=== PATIENT | male | born 1970 | race Caucasian/White ===

== ENCOUNTER 2016-12-03 16:28 | Emergency (ER) | payer OTHER ==
--- NOTE | 2016-12-03 18:00 | EDM.PDOC ---
ED HPI GENERAL MEDICAL PROBLEM - General Chief Complaint: Skin Complaint Stated Complaint: LACERATION/SMASHED LT INDEX FINGER Time Seen by Provider: 12/03/16 17:40 Source of Information: Reports: Patient History Limitations: Reports: No Limitations - History of Present Illness INITIAL COMMENTS - FREE TEXT/NARRATIVE: HISTORY AND PHYSICAL: History of present illness: [Patient comes to the emergency room for evaluation of a laceration to his left index finger which occurred Saturday evening at 5:00 pm, approximately 72 hours ago. Smashed the tip of his finger in some paneling. Experienced pain and bleeding at the time of injury. Tried to have the wound evaluated at a couple of clinics in the area was able to receive medical evaluation. He is kept the wound clean and dry and wrapped through the weekend and presents the ER now for evaluation. Most recent tetanus shot was given within the last 5 years.] Review of systems: As per history of present illness and below otherwise all systems reviewed and negative. Past medical history: As per history of present illness and as reviewed below otherwise noncontributory. Surgical history: As per history of present illness and as reviewed below otherwise noncontributory. Social history: No reported history of drug or alcohol abuse. Family history: As per history of present illness and as reviewed below otherwise noncontributory. Physical exam: HEENT: Atraumatic, normocephalic. Extremities: Tip of Left index finger shows a flap-type avulsion through the lateral aspect to his mid finger, involving the nail. Neurovascular status is intact to remaining attached tissue. Neuro: Awake, alert, oriented. Motor and sensory unremarkable throughout. Exam nonfocal. Impression: [Smash injury left index finger] Plan: [Dr. Lashawn Martin is contacted in consultation for patient's injury. Wound is cleansed with Xeroform dressing applied. He is started on Keflex 500 mg 3 times a day for the next [address] Martin states that she will contact patient tomorrow to schedule follow-up. The patient is in agreement with today's plan. All of his questions are answered and concerns are addressed.] Definitive disposition and diagnosis as appropriate pending reevaluation and review of above. - Related Data Allergies Allergy/AdvReac Type Severity Reaction Status Date / Time No Known Allergies Allergy Verified 12/03/16 16:38 Home Meds: Home Meds Cephalexin [Keflex] 500 mg PO TID #21 cap 12/03/16 [Rx] Excedrin 12/03/16 [History] Past Medical History - Past Surgical History Musculoskeletal Surgical History: Reports: Other (See Below) Social & Family History - Tobacco Use Smoking Status *Q: Current Every Day Smoker Years of Tobacco use: 25 Packs/Tins Daily: 0.5 - Caffeine Use Caffeine Use: Reports: Soda - Recreational Drug Use Recreational Drug Use: No ED ROS GENERAL - Review of Systems Review Of Systems: ROS reveals no pertinent complaints other than HPI. ED EXAM, SKIN/RASH Exam: See Below Course - Vital Signs Last Recorded V/S: Last Vital Signs Temp 97.5 F 12/03/16 16:39 Pulse 57 L 12/03/16 18:35 Resp 16 12/03/16 18:35 BP 121/71 12/03/16 18:35 Pulse Ox 98 12/03/16 18:35 Departure - Departure Time of Disposition: 18:00 Disposition: Home, Self-Care 01 Condition: Good Clinical Impression: Avulsion of finger tip Qualifiers: Encounter type: initial encounter Qualified Code(s): S61.209A - Unspecified open wound of unspecified finger without damage to nail, initial encounter - Discharge Information Prescriptions: Cephalexin [Keflex] 500 mg PO TID #21 cap Instructions: Nail Bed Injury, [id number] Referrals: PCP,None [Primary Care Provider] - Forms: ED Department Discharge Additional Instructions: The following information is given to patients seen in the emergency department who are being discharged to home. This information is to outline your options for follow-up care. We provide all patients seen in our emergency department with a follow-up referral. The need for follow-up, as well as the timing and circumstances, are variable depending upon the specifics of your emergency department visit. If you don't have a primary care physician on staff, we will provide you with a referral. We always advise you to contact your personal physician following an emergency department visit to inform them of the circumstance of the visit and for follow-up with them and/or the need for any referrals to a consulting specialist. The emergency department will also refer you to a specialist when appropriate. This referral assures that you have the opportunity for follow-up care with a specialist. All of these measure are taken in an effort to provide you with optimal care, which includes your follow-up. Under all circumstances we always encourage you to contact your private physician who remains a resource for coordinating your care. When calling for follow-up care, please make the office aware that this follow-up is from your recent emergency room visit. If for any reason you are refused follow-up, please contact the [facility] emergency department at and asked to speak to the emergency department charge nurse. [facility] Specialty care- Plastic Surgery Professional Building [address] [place] [address], [address] [place] [address] The above listed clinic will be contacting you tomorrow morning to schedule follow-up. Until then, wash your wound daily, take antibiotics as prescribed. Return to ER as needed as discussed.
[2016-12-03 19:44] VITALS: BP 121/71
== END 2016-12-03 18:35 | disposition home or self-care (01) ==
LOC: MW.ED 16:28
DX: S61.211A Laceration without foreign body of left index finger without damage to nail, initial encounter (principal); F17.210 Nicotine dependence, cigarettes, uncomplicated; W23.1XXA Caught, crushed, jammed, or pinched between stationary objects, initial encounter
CPT/HCPCS: 99282; 99283